=== PATIENT | female | born 1960 | race African-American/Black ===

== ENCOUNTER 2021-08-20 16:44 | Emergency (ER) | payer OTHER ==
[~2021-08-20] VITALS: Ht 165.1 cm; Wt 104.0 kg
[2021-08-20] MEDS ORDERED: HYDROCODONE/ACETAMINOPHEN 5/325MG TABLET PO ONE (17:30)
[2021-08-20] MEDS ORDERED: PROPOFOL 200MG/20ML VIAL IV ONE ×2 (19:30→22:45)
[2021-08-21] MEDS ORDERED: IBUP-2028 MT (00:23)
[2021-08-21 00:30] VITALS: BP 125/61
== END 2021-08-21 00:30 | disposition home or self-care (01) ==
LOC: ER 16:44
DX: S53.105A Unspecified dislocation of left ulnohumeral joint, initial encounter (principal); I10 Essential (primary) hypertension; W18.30XA Fall on same level, unspecified, initial encounter; Y93.01 Activity, walking, marching and hiking; Y92.89 Other specified places as the place of occurrence of the external cause; Y99.8 Other external cause status
CPT/HCPCS: 24600; 73070; 73080; 73090; 99152; 99285; J2704